=== PATIENT | female | born 1990 | race Hispanic/Latino ===

== ENCOUNTER 2018-01-21 15:31 | Emergency (ER) | payer OTHER ==
[2018-01-21 15:38] VITALS: BP 129/83; PULSE 94; RESP 16; TEMP 98.1; O2SAT 98
--- NOTE | 2018-01-21 16:01 | ED PDOC ---
History of Present Illness History of Present Illness: Adina Blas is a 27 year old female, with no significant past medical history, who presents to the emergency department complaining of body aches, cough, congestion and joint pain onset for x3 days. Patient also reports a tactile fever and states multiple people at work have been diagnosed with the flu. Patient took Theraflu and advil, last dose x2 hours ago and she did receive the flu vaccine this season. She denies any chest pain, shortness of breath, abdominal pain, nausea, vomit, diarrhea or recent travel. No further medical complaints. PMD: None problems. HPI: Influenza Time Seen by Provider: 01/21/18 15:38 Chief Complaint: Flu-like Symptoms Chief Complaint (Provider): Flu-like symtoms History Per: Patient Exam Limitations: no limitations Have you had recent travel within the past 21 days to any of: No Onset/Duration Of Symptoms: Days (x3) Symptoms include: fever (tactile), bodyaches, nasal congestion. denies: vomiting, diarrhea, chest pain, difficulty breathing Sick Contacts (Context): Individual(s) At Work Hx Influenza Vaccination: Yes Past Medical History Reviewed: Historical Data, Nursing Documentation, Vital Signs Vital Signs: Last Vital Signs Temp 98.1 F 01/21/18 15:35 Pulse 94 H 01/21/18 15:35 Resp 16 01/21/18 15:35 BP 129/83 01/21/18 15:35 Pulse Ox 98 01/21/18 15:35 - Medical History PMH: No Chronic Diseases - Surgical History Surgical History: No Surg Hx - Family History Family History: States: Unknown Family Hx - Home Medications Home Medications: Ambulatory Orders Medication Instructions Recorded Fluticasone Propionate [Flonase] 2 spr NS DAILY PRN #1 bottle 01/21/18 Oseltamivir [Tamiflu] 75 mg PO BID #9 cap 01/21/18 Promethazine DM [Phenergan DM 5 - 10 ml PO Q8 PRN #120 ml 01/21/18 Syrup] - Allergies Allergies/Adverse Reactions: Allergies Allergy/AdvReac Type Severity Reaction Status Date / Time azithromycin Allergy RASH Verified 01/21/18 15:35 [From Zithromax Z-Leon] Review of Systems ROS Statement: Except As Marked, All Systems Reviewed And Found Negative Constitutional: Positive for: Fever (tactile), Other (body aches, and joint pain ) ENT: Positive for: Nose Congestion Cardiovascular: Negative for: Chest Pain Respiratory: Positive for: Cough. Negative for: Shortness of Breath Gastrointestinal: Negative for: Nausea, Vomiting, Abdominal Pain, Diarrhea Physical Exam - Reviewed Nursing Documentation Reviewed: Yes Vital Signs Reviewed: Yes - Physical Exam Appears: Positive for: Well, Non-toxic, No Acute Distress Head Exam: Positive for: ATRAUMATIC, NORMAL INSPECTION, NORMOCEPHALIC Skin: Positive for: Normal Color, Warm, Dry Eye Exam: Positive for: Normal appearance, EOMI, PERRL ENT: Positive for: TM Is/Are (Right TM fluid but non erythematous, non bulging. Left TM non erythematous non bulging. No hemotympanum b/l). Negative for: Pharyngeal Erythema, Tonsillar Exudate, Tonsillar Swelling Neck: Positive for: Painless ROM, Supple Cardiovascular/Chest: Positive for: Regular Rate, Rhythm. Negative for: Murmur Respiratory: Positive for: Normal Breath Sounds. Negative for: Respiratory Distress Gastrointestinal/Abdominal: Positive for: Normal Exam, Soft. Negative for: Tenderness Extremity: Positive for: Normal ROM (All extremities). Negative for: Tenderness , Deformity, Swelling Neurologic/Psych: Positive for: Alert, Oriented. Negative for: Motor/Sensory Deficits Medical Decision Making Medical Decision Making: Initial Impression: Influenza Initial Plan: --Tamiflu Cap 75 mg PO --Influenza A B --Reevaluation ~ Scribe Attestation: Documented by Terry Robert, acting as a scribe for Romero Mata PA-C. Provider Scribe Attestation: All medical record entries made by the Scribe were at my direction and personally dictated by me. I have reviewed the chart and agree that the record accurately reflects my personal performance of the history, physical exam, medical decision making, and the department course for this patient. I have also personally directed, reviewed, and agree with the discharge instructions and disposition. - ECG O2 Sat by Pulse Oximetry: 98 (RA) Pulse Ox Interpretation: Normal - Progress ED Course And Treament: Pt. requesting flu test to be done and an Rx for tamiflu. Informed of decrease in effectiveness of Tamiflu after 48 hours of the onset of symptoms. Pt. still requesting tamiflu. Pt. requested to be dc'd prior to receiving flu test results and prefers to be called with results. 1700 Spoke with patient and informed of results. Informed of high false negative rate with flu test and that regardless of test results she does have influenza. Advised to take medications as prescribed. Disposition - Clinical Impression Clinical Impression: Influenza-like symptoms - Patient ED Disposition Is Patient to be Admitted: No - Disposition Disposition: Routine/Home Disposition Time: 16:30 Condition: STABLE Prescriptions: Fluticasone Propionate [Flonase] 2 spr NS DAILY PRN #1 bottle PRN Reason: Allergy Symptoms Oseltamivir [Tamiflu] 75 mg PO BID #9 cap Promethazine DM [Phenergan DM Syrup] 5 - 10 ml PO Q8 PRN #120 ml PRN Reason: Cough Instructions: Flu, Adult (DC) Forms: [place] (German), [facility] ED School/Work Excuse Print Language: TELUGU
== END 2018-01-21 16:30 | disposition home or self-care (01) ==
LOC: H.ER 15:31
DX: J11.1 Influenza due to unidentified influenza virus with other respiratory manifestations (principal)